=== PATIENT | male | born 1995 | race Caucasian/White ===

== ENCOUNTER → 2018-05-11 | Outpatient (CLI) | payer OTHER | LOC: M RAD 13:00 | DX: R59.0 Localized enlarged lymph nodes (principal) ==

== ENCOUNTER 2018-05-18 18:43 | Emergency (ER) | payer OTHER | END 2018-05-18 20:14 | disposition home or self-care (01) | LOC: M ED 18:43 | DX: J20.9 Acute bronchitis, unspecified (principal); Z87.891 Personal history of nicotine dependence | CPT/HCPCS: 71046 ==

== ENCOUNTER → 2018-06-09 | Outpatient (CLI) | payer OTHER ==
[~2018-06-09] MED LIST: ISOVUE-370 76% 100ML VIAL (Q9967) As Ordered
== END ==
LOC: M RAD 13:35
DX: J32.3 Chronic sphenoidal sinusitis (principal); J32.2 Chronic ethmoidal sinusitis; J32.0 Chronic maxillary sinusitis
CPT/HCPCS: Q9967

== ENCOUNTER 2018-06-13 18:31 | Emergency (ER) | payer OTHER | END 2018-06-13 20:15 | disposition home or self-care (01) | LOC: M ED 18:31 | DX: F32.9 Major depressive disorder, single episode, unspecified (principal); F17.200 Nicotine dependence, unspecified, uncomplicated | CPT/HCPCS: 99284 ==

== ENCOUNTER → 2018-07-11 | Outpatient (CLI) | payer OTHER ==
[~2018-07-11] MED LIST changes: -ISOVUE-370 76% 100ML VIAL (Q9967) As Ordered; +LIDOCAINE 1% MDV 20ML VIAL As Ordered
== END ==
LOC: M RADPRO 09:40
DX: R59.0 Localized enlarged lymph nodes (principal)
CPT/HCPCS: 10022

== ENCOUNTER → 2018-08-09 | Outpatient (CLI) | payer OTHER ==
[~2018-08-09] MED LIST changes: +AMOX500C PO; +LEXA1TAB PO; -LIDOCAINE 1% MDV 20ML VIAL As Ordered; +TESS100C PO
--- NOTE | 2018-08-10 04:37 | REP ---
Clinical: Pelvic pain. Lymphadenopathy. Technique: Real time enriquez scale and color evaluation using linear high frequency transducer. Findings: Ultrasound examination demonstrates few scattered bilateral inguinal lymph nodes measuring up to 11 x 3 x 8 mm on the left and 11 x 3 x 8 mm on the right. No obvious hernia. Impression: Normal appearing bilateral lymph nodes. No obvious inguinal hernia. Electronically Signed by Papo Caro MD 08/10/2018 04:28 A
--- NOTE | 2018-08-10 08:31 | MEDONCTEEN ---
Date/Time of Encounter Date of Encounter: Aug 10, 2018 Time of Encounter: 08:30 Telephone Encounter Pelvic ultrasound showed normal appearing lymph nodes. Results discussed with patient. Advised continued observation. MYRA MICHAELS MD Aug 10, 2018 08:31
== END ==
LOC: M RAD 08:33
PROVIDERS: ATTEND Internal Medicine Medical Oncology
DX: R59.0 Localized enlarged lymph nodes (principal)

== ENCOUNTER → 2019-01-30 | Outpatient (CLI) | payer OTHER ==
--- NOTE | 2019-01-30 10:29 | REP ---
Clinical: Adenopathy. Technique: Real time enriquez scale and color evaluation using linear high frequency transducer. Findings: Ultrasound examination demonstrates normal bilateral cervical lymph nodes measuring up to 15 x 7 x 5 mm on the right and 16 x 7 x 10 mm on the left. Impression: Normal cervical lymph nodes. Electronically Signed by Papo Caro MD 01/30/2019 10:20 A
--- NOTE | 2019-01-30 10:29 | REP ---
Clinical: Follow up adenopathy. Technique: Real time enriquez scale and color evaluation using linear high frequency transducer. Findings: Ultrasound examination of the bilateral groin demonstrates normal appearing lymph nodes measuring up to 10 x 4 x 4 mm in the right groin and 10 x 4 x 7 mm in the left groin. No mass lesion or fluid. Impression: Normal inguinal lymph nodes. Electronically Signed by Papo Caro MD 01/30/2019 10:21 A
== END ==
LOC: M RAD 09:02
PROVIDERS: ATTEND Internal Medicine Hematology & Oncology
DX: R59.1 Generalized enlarged lymph nodes (principal)

== ENCOUNTER → 2020-01-22 | Outpatient (CLI) | payer OTHER ==
[2020-01-22 17:06] LABS: ALBUMIN 4.1 GM/DL (3.2-5.2); ALT/SGPT 17 U/L (12-78); BILIRUBIN,TOTAL 0.3 MG/DL (0.2-1.0); BLOOD UREA NITROGEN 9 MG/DL (7-18); CALCIUM LEVEL 9.1 MG/DL (8.5-10.1); CARBON DIOXIDE LEVEL 30 MEQ/L (21-32); CHLORIDE LEVEL 107 MEQ/L (98-107); CREATININE FOR GFR 1.03 MG/DL (0.70-1.30); GLOMERULAR FILTRATION RATE > 60.0 (>60); GLUCOSE, FASTING 84 MG/DL (70-100); POTASSIUM SERUM 4.4 MEQ/L (3.5-5.1); SODIUM LEVEL 141 MEQ/L (136-145); TOTAL PROTEIN 6.5 GM/DL (6.4-8.2)
[2020-01-22 17:14] LABS: BASO # 0.1 10^3/uL (0.0-0.2); BASO % 1.1 % (0.0-1.0); EOS # 0.4 10^3/uL (0.0-0.5); EOS % 7.8 % (0.0-3.0); HEMATOCRIT 42.7 % (42.0-52.0); HEMOGLOBIN 14.3 g/dl (13.5-17.5); LYMPH # 2.3 10^3/uL (1.5-5.0); MEAN CORPUSCULAR HEMOGLOBIN 30.4 pg (27.0-33.0); MEAN CORPUSCULAR HGB CONC 33.5 g/dl (32.0-36.5); MEAN CORPUSCULAR VOLUME 90.7 fl (80.0-96.0); MONO # 0.6 10^3/uL (0.0-0.8); MONO % 9.8 % (0.0-5.0); NEUTROPHILS # 2.3 10^3/uL (1.5-8.5); NEUTROPHILS % 41.1 % (36.0-66.0); PLATELET COUNT, AUTOMATED 280 10^3/uL (150-450); RED BLOOD COUNT 4.71 10^6/uL (4.30-6.10); WHITE BLOOD COUNT 5.6 10^3/uL (4.0-10.0)
== END ==
LOC: M WUC 13:25
PROVIDERS: ATTEND Internal Medicine Hematology
DX: R59.9 Enlarged lymph nodes, unspecified (principal)

== ENCOUNTER → 2021-10-15 | Outpatient (CLI) | payer OTHER ==
[~2021-10-15] MED LIST changes: +ISOVUE-370 76% 100ML VIAL As Ordered ONE
== END ==
LOC: M RAD 13:18
PROVIDERS: ATTEND Nurse Practitioner Family
DX: R59.0 Localized enlarged lymph nodes (principal)
CPT/HCPCS: 70491; Q9967

== ENCOUNTER 2022-03-02 12:50 | Emergency (ER) | payer OTHER ==
[~2022-03-02] VITALS: Ht 175.3 cm; Wt 63.6 kg
[2022-03-02 12:50] VITALS: BP 149/99
[~2022-03-02 12:50] MED LIST changes: -ISOVUE-370 76% 100ML VIAL As Ordered ONE
[2022-03-02] MEDS ORDERED: NAPR-837 PO (17:20)
[2022-03-02] MEDS ORDERED: BENZ200C70 PO (17:23)
== END 2022-03-02 17:26 | disposition home or self-care (01) ==
LOC: M ED 12:50
DX: M94.0 Chondrocostal junction syndrome [Tietze] (principal); R07.89 Other chest pain

== ENCOUNTER → 2022-12-06 | Outpatient (CLI) | payer OTHER ==
[~2022-12-06] MED LIST changes: +BENZ200C70 PO; +NAPR-837 PO
== END ==
LOC: M PLALAB 15:15
PROVIDERS: ATTEND Obstetrics & Gynecology
DX: Z31.440 Encounter of male for testing for genetic disease carrier status for procreative management (principal)